=== PATIENT | male | born 1990 | race Hispanic/Latino ===

== ENCOUNTER 2020-10-08 21:42 | Observation (INO) | payer SELFPAY ==
--- NOTE | ~2020-10-08 | CT_ITS ---
EXAMINATION: CT abdomen pelvis w con INDICATION: Lower abdominal pain and vomiting TECHNIQUE: Computed tomographic images of the abdomen and pelvis were obtained after the administrati on of 100 cc of Omnipaque 350 intravenous contrast. The dose-length product (DLP) was 239.13 mGy-cm. Automated exposure control and iterative reconstruction technique were employed. COMPARISON: None available FINDINGS: The lung bases are clear. The heart size is normal. The liver, spleen, pancreas, gallbladde r, and adrenal glands are normal. The kidneys are unremarkable. No pathologically enlarged abdominal or pelvic lymph nodes are identified. There is mild enlargement of the appendix which measures up to 8 mm and contains appendicoliths. No significant periappendiceal fat stranding is identified. There a re no dilated loops of bowel. There is a small umbilical hernia containing fat. There is no free intr aperitoneal gas. There are bilateral L5 pars defects with grade 1 anterolisthesis of L5 on S1. IMPRESSION: 1. Mildly dilated appendix containing appendicoliths without significant periappendiceal fat strandin g. Findings could reflect early appendicitis. Recommend correlation for right lower quadrant tenderne ss. Reviewed, dictated and finalized at location A. IMPRESSION: 1. Mildly dilated appendix containing appendicoliths without significant periap pendiceal fat stranding. Findings could reflect early appendicitis. Recommend c orrelation for right lower quadrant tenderness.
[2020-10-08 21:47] VITALS: BP 105/64; PULSE 81; RESP 18; TEMP 36.4; O2SAT 100
--- NOTE | 2020-10-08 22:07 | ED.ABDPAIN ---
HPI - Abdominal Pain General Chief Complaint: Abdominal Pain <ANTHONY Tong - Last Filed: 10/09/20 00:43> Stated Complaint: ABD pain <ANTHONY Tong - Last Filed: 10/09/20 00:43> Time Seen by Provider: 10/08/20 21:58 <ANTHONY Tong - Last Filed: 10/09/20 00:43> Source: patient <Noelle M. ANTHONY Garcia - Last Filed: 10/09/20 00:43> Mode of arrival: ambulatory <ANTHONY Tong - Last Filed: 10/09/20 00:43> Limitations: no limitations <ANTHONY Tong - Last Filed: 10/09/20 00:43> History of Present Illness HPI narrative: Patient is a 40-year-old male who presents complaining of sudden onset of abdominal pain this afternoon. Patient reports generalized abdominal pain, guarding lower abdomen at this time. Patient reports vomiting x 2 this evening. 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 Patient denies diarrhea. He reports he is unable to urinate at this time. Denies exposure to Covid, patient is unvaccinated. He denies taking otc medication for pain prior to arrival. Patient denies significant medical history. <ANTHONY Tong - Last Filed: 10/09/20 00:43> MD elicited complaint: abdominal pain <ANTHONY Tong - Last Filed: 10/09/20 00:43> Related Data Home Medications: Home Medications Medication Instructions Recorded Confirmed No Home Medications 10/09/20 10/09/20 <ANTHONY Tong - Last Filed: 10/09/20 00:43> Allergies/Adverse Reactions: Allergies Allergy/AdvReac Type Severity Reaction Status Date / Time No Known Allergies Allergy Verified 10/08/20 21:53 <ANTHONY Tong - Last Filed: 10/09/20 00:43> Review of Systems Review of Systems: CONSTITUTIONAL: Denies fever, chills, or sweats. EYES: Denies visual changes, redness, or discharge. ENT: Denies rhinorrhea, congestion, sore throat, or otalgia. CARDIOVASCULAR: Denies chest pain, palpitations, or edema. RESPIRATORY: Denies cough or dyspnea. GASTROINTESTINAL: Reports abdominal pain and vomiting x2 GENITOURINARY: Denies dysuria or hematuria. SKIN: Denies rash or itching. MUSCULOSKELETAL: Denies back pain, joint pain, or myalgia. NEUROLOGIC: Denies headache, numbness, dizziness, or weakness. PSYCHIATRIC: Denies anxiety or depression. <ANTHONY Tong - Last Filed: 10/09/20 00:43> [facility] Past Medical History Medical History: Medical History Marijuana smoker Smoker <ANTHONY Tong - Last Filed: 10/09/20 00:43> Family History Family History: Family History Other No significant family history <ANTHONY Tong - Last Filed: 10/09/20 00:43> Social History Social History: Social History Smoking packs per day: 0.5 Smoking cigarettes per day: 10.0 Years smoked: 10 Smoking pack-years: 5.00 Smoking status: Current every day smoker Tobacco type: cigarettes Alcohol intake: current Alcohol use details: occasional Substance use: current Substance use type: marijuana Last use: 1 week ago Occupation/Education: occupation 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 Please see nursing chart for further information. There is no relevant family history pertinent to the presenting complaint. <ANTHONY Tong - Last Filed: 10/09/20 00:43> Exam Narrative: GENERAL: Well-appearing, well-nourished, and in no acute distress. HEAD: Normocephalic, atraumatic. EYES: EOMI. No redness or drainage. Conjunctiva ar
[2020-10-08] MEDS: ONDANSETRON INJ 4 MG/2 ML VIAL IV PUSH (22:16)
[2020-10-08] MEDS: SODIUM CHLORIDE 0.9% IV 1,000 ML 999 ML IV CONT (22:16)
[2020-10-08 22:18] LABS: Basophils Percent Auto 0.2 % (0.2-1.2); Eosinophils Percent Auto 0.2 % (0-4.4); Hematocrit 44.5 % (42.0-52.0); Immature Granulocyte Absolute 0.08 K/mm3 (0.00-0.031); Immature Granulocyte Percent A 0.5 % (0-0.5); Lymphocytes Absolute Auto 2.04 K/mm3 (0.9-3.2); Lymphocytes Percent Auto 13.1 % (18.3-44.2); Mean Corpuscular HGB Conc 33.7 g/dl (32-36); Mean Corpuscular Hemoglobin 27.5 pg (26-34); Mean Corpuscular Volume 81.7 fl (80-100); Mean Platelet Volume 9.2 fl (7.4-10.4); Monocytes Absolute Auto 0.7 K/mm3 (0.1-0.6); Monocytes Percent Auto 4.4 % (2.6-8.5); Neutrophils Absolute Auto 12.7 K/mm3 (1.3-6.7); Neutrophils Percent Auto 81.6 % (45.5-73.1); Platelet Count Result 271 k/mm3 (150-375); Red Blood Count 5.45 M/mm3 (4.6-6.20); Red Cell Distribution Width 12.4 % (11.5-14.5); White Blood Count 15.6 K/mm3 (4.5-10.0)
[2020-10-08 22:27] LABS: Alanine Aminotransferase 24 U/L (4-50); Albumin Level 4.8 g/dL (3.5-5.1); Alkaline Phosphatase 98 U/L (38-126); Anion Gap 13 mmol/L (8-16); Aspartate Amino Transferase 33 U/L (17-59); Bilirubin,Total 0.8 mg/dL (0.2-1.3); Blood Urea Nitrogen 16 mg/dL (9-20); Calcium 9.3 mg/dL (8.4-10.2); Carbon Dioxide 21 mmol/L (22-30); Chloride 104 mmol/L (98-107); Estimated CRCL calculation 98 ml/min; Estimated Glomerular Filt Rate > 60; Glucose 111 mg/dL (65-110); Lipase 73 U/L (23-300); Potassium 3.4 mmol/L (3.4-5.0); Sodium 138 mmol/L (137-145)
--- NOTE | 2020-10-08 22:48 | PC.NURSE ---
Pt states he cant urinate at this time. Will attempt again soon.
[2020-10-08 23:10] VITALS: BP 141/79; PULSE 86; RESP 25; O2SAT 100
[2020-10-08] MEDS: MORPHINE SULFATE (*CRX) 4 MG/ML INJ IV PUSH (23:14)
[2020-10-08 23:29] LABS: Add Urine Microscopic? YES; Appearance Urine Clear (Clear); Bilirubin Urine Negative (Negative); Blood Urine Negative (Negative); Color Urine Straw (Yellow); Glucose Urine UA Negative (Negative); Ketones Urine 1+ mg/dL (Negative); Leukocyte Esterase Ur Negative LEU/UL (Negative); Nitrate Urine Negative (Negative); Protein Urine Negative (Negative); RBC Urine 0-2 /hpf (0-2); Urobilinogen Urine Negative mg/dL (<2.0); WBC Urine 0-3 /hpf
[2020-10-08 23:39] LABS: Specific Grav Ur 1.035 (1.001-1.035)
[2020-10-09] VITALS (17 sets, daily range): BP systolic 112–147; BP diastolic 60–91; PULSE 53–88; RESP 12–22; TEMP 36.2–36.6; O2SAT 93–100; BMI 22.0
--- NOTE | 2020-10-09 00:55 | ADMGEN ---
This patient, Gil Dick Jr., was admitted to Medical Room 252-01. Patient/family oriented to hospital policies and general routines including ID bracelet, bed and alarms, visiting hours, pain management, procedures, bathroom and other care routines, personal items, smoking policy, room service/diet, and visiting hours. Information on how to activate the Rapid Response Team has been discussed. Patient/Family are encouraged to report perceived risks to care and to ask questions if they do not understand what they are told or what they should do.
[2020-10-09] MEDS: SODIUM CHLORIDE 0.9% IV 1,000 ML 125 ML IV CONT (01:13)
[2020-10-09] MEDS: MORPHINE SULFATE (*CRX) 4 MG/ML INJ IV PUSH ×4 (01:14→18:29)
[2020-10-09] MEDS: ONDANSETRON INJ 4 MG/2 ML VIAL IV PUSH ×2 (01:14→15:55)
--- NOTE | 2020-10-09 08:15 | PM.IMHP ---
H&P: HPI History of Present Illness Date/Time: 10/09/20 08:15 Chief Complaint: Lower abdominal pain Narrative: 30 yo man presented to ED overnight with RLQ abdominal pain. Pain started yesterday. Also having nausea and vomiting. No change in bowel habits. No fevers. Has never had pain like this before. He is otherwise healthy except for tobacco use and occasional marijuana. Review of Systems Review of Systems: All systems reviewed & are unremarkable except as noted in HPI and below Eyes: Eyes: Denies change in vision ENT: Denies hearing loss, Denies neck pain and Denies sore throat Cardiovascular: Cardiovascular: Denies chest pain and Denies dyspnea Respiratory: Respiratory: Denies cough, Denies dyspnea and Denies wheezing Gastrointestinal: Gastrointestinal: Reports as per HPI Genitourinary: Genitourinary: Denies hematuria and Denies dysuria Musculoskeletal: Musculoskeletal: Denies arthralgias, Denies joint swelling and Denies neck pain Allergic/Immunologic: Allergic/Immunologic: Denies wheezing PMFSH Past Medical History Medical History (Updated 10/08/20 @ 23:50 by ANTHONY Tong) No significant past medical history Surgical History Surgical History (Updated 10/08/20 @ 22:10 by ANTHONY Tong) No significant past surgical history Family History Family History Other No significant family history Social History Social History (Updated 10/09/20 @ 08:18 by Naldo Villareal DO) Smoking packs per day: 0.5 Smoking cigarettes per day: 10.0 Years smoked: 10 Smoking pack-years: 5.00 Smoking status: Current every day smoker Tobacco type: cigarettes Alcohol intake: current Alcohol use details: occasional Substance use: current Substance use type: marijuana Last use: 1 week ago Occupation/Education: occupation 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, 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 Gender identity (if verbalized by the patient): Male Spiritual care concerns: No Meds Home Medications and Allergies Home Medications Medication Instructions Recorded Confirmed Type No Home Medications 10/09/20 10/09/20 History Allergies Allergy/AdvReac Type Severity Reaction Status Date / Time No Known Allergies Allergy Verified 10/08/20 21:53 Vital Signs Vital Signs - 24 hr 10/08/20 21:47 10/08/20 23:10 10/09/20 00:15 Temperature 36.4 C Pulse Rate 81 86 74 Respiratory Rate 18 25 H 20 Blood Pressure 105/64 141/79 H 137/91 H Pulse Oximetry 100 100 100 10/09/20 02:18 10/09/20 05:50 Temperature 36.4 C 36.2 C L Pulse Rate 73 69 Respiratory Rate 22 H 16 Blood Pressure 147/79 H 136/67 Pulse Oximetry 100 98 Exam Const: General: alert; No acute distress Orientation/consciousness: patient oriented x3 Limitations: no limitations HENMT: Head: normocephalic and atraumatic Ears: hearing grossly normal bilaterally General nose exam: Normal external nose present and Normal nares present Mouth: Yes Normal oral and palatal mucosa present and Yes moist mucous membranes Eyes: General: appearance normal, both eyes and all related structures Conjunctivae: conjunctivae normal Sclera: sclerae normal Pupils: Equal, round and reactive pupils present EOM: EOMs intact bilaterally Neck: Neck: normal visual inspection, full ROM, no lymphadenopathy, supple and no JVD Lymphatic: no lymphadenopathy noted Chest: Chest palpation & inspection: normal inspection of the chest Resp: Effort & Inspection: normal respiratory effort and able to speak in complete sentences Auscultation: clear to auscultation bilaterally Percussion: percussion normal Cardio: Jugular venous distension: no JVD Rate: regular rate Rhythm: regular rhythm Heart sounds: S1 normal heart sound present and S2 normal heart sound present Peripheral pulses: Peripheral pulses 2+ throughout GI: Inspection: normal to insp
--- NOTE | 2020-10-09 09:45 | PC.NURSE ---
To OR via stretcher with OR staff. Consent signed and on chart.
--- NOTE | 2020-10-09 09:55 | WPDANESEPPF ---
Anes - Initial Pre Proc Eval Procedure: Operation Date: 10/09/20 11:00 Proposed Procedures p Laparoscopic Appendectomy, Possible Open - Naldo Villareal DO Date/Time: 10/09/20 09:55 Surgeon: Naldo Villareal DO Pre Op Diagnosis: Appendicitis Patient Data Age: 30 Gender: M Height: 1.75 m Weight: 67.8 kg Last Vital Signs Temp 36.2 C L 10/09/20 05:50 Pulse 69 10/09/20 05:50 Resp 16 10/09/20 05:50 BP 136/67 10/09/20 05:50 Pulse Ox 98 10/09/20 05:50 Allergies Allergy/AdvReac Type Severity Reaction Status Date / Time No Known Allergies Allergy Verified 10/08/20 21:53 Home Medications Medication Instructions Recorded Confirmed Type No Home Medications 10/09/20 10/09/20 History Laboratory Tests 10/08/20 10/08/20 10/08/20 22:10 22:10 23:11 WBC 15.6 K/mm3 H K/mm3 (4.5-10.0) RBC 5.45 M/mm3 M/mm3 (4.6-6.20) Hgb 15.0 g/dL g/dL (14.0-18.0) Hct 44.5 % % (42.0-52.0) MCV 81.7 fl fl (80-100) MCH 27.5 pg pg (26-34) MCHC 33.7 g/dl g/dl (32-36) RDW 12.4 % % (11.5-14.5) Plt Count 271 k/mm3 k/mm3 (150-375) MPV 9.2 fl fl (7.4-10.4) Immature Gran % (Auto) 0.5 % % (0-0.5) Neut % (Auto) 81.6 % H % (45.5-73.1) Lymph % (Auto) 13.1 % L % (18.3-44.2) [place] % (Auto) 4.4 % % (2.6-8.5) Eos % (Auto) 0.2 % % (0-4.4) Baso % (Auto) 0.2 % % (0.2-1.2) Lymph # (Auto) 2.04 K/mm3 K/mm3 (0.9-3.2) [place] # (Auto) 0.7 K/mm3 H K/mm3 (0.1-0.6) Eos # (Auto) 0.0 K/mm3 K/mm3 (0-0.3) Baso # (Auto) 0.0 K/mm3 K/mm3 (0.0-0.1) Abs Immat Gran (auto) 0.08 K/mm3 H K/mm3 (0.00-0.031) Absolute Neuts (auto) 12.7 K/mm3 H K/mm3 (1.3-6.7) Absolute Nucleated RBC 0.0 K/mm3 K/mm3 (0.0-0.012) Nucleated RBC % 0.0 % % (0.0-0.2) Sodium 138 mmol/L mmol/L (137-145) Potassium 3.4 mmol/L mmol/L (3.4-5.0) Chloride 104 mmol/L mmol/L (98-107) Carbon Dioxide 21 mmol/L L mmol/L (22-30) Anion Gap 13 mmol/L mmol/L (8-16) BUN 16 mg/dL mg/dL (9-20) Creatinine 0.80 mg/dL mg/dL (0.7-1.3) Estim Creat Clear Calc 98 ml/min ml/min Estimated GFR > 60 (59 - ) Glucose 111 mg/dL H mg/dL (65-110) Calcium 9.3 mg/dL mg/dL (8.4-10.2) Total Bilirubin 0.8 mg/dL mg/dL (0.2-1.3) AST 33 U/L U/L (17-59) ALT 24 U/L U/L (4-50) Alkaline Phosphatase 98 U/L U/L (38-126) Total Protein 8.0 g/dL g/dL (6.3-8.2) Albumin 4.8 g/dL g/dL (3.5-5.1) Lipase 73 U/L U/L (23-300) Urine Color Straw (Yellow) Urine Appearance Clear (Clear) Urine pH 9.0 (5.0-9.0) Ur Specific [place] 1.035 (1.001-1.035) Urine Protein Negative mg/dL mg/dL (Negative) Urine Glucose (UA) Negative mg/dL mg/dL (Negative) Urine Ketones 1+ mg/dL H mg/dL (Negative) Ur Blood (Man) Negative (Negative) Urine Nitrate Negative (Negative) Urine Bilirubin Negative (Negative) Urine Urobilinogen Negative mg/dL mg/dL (<2.0) Leukocyte Esterase Rfl Negative IRASEMA/UL IRASEMA/UL (Negative) Urine RBC 0-2 /hpf /hpf (0-2) Urine WBC 0-3 /hpf /hpf Patient hx anesthesia problems: none Family hx anesthesia problems: none PMFSH Past Medical History Medical History Marijuana smoker Smoker Family History Family History Other No significant family history Social History Social History Smoking packs per day: 0.5 Smoking cigarettes per day: 10.0 Years smoked: 10 S
[2020-10-09] MEDS: LACTATED RINGERS 1,000 ML 30 ML IV CONT ×2 (10:09→12:04)
--- NOTE | 2020-10-09 10:50 | WPDHPUPDATE1 ---
History and Physical Update Update Date/Time: 10/09/20 10:50 History and Physical has been reviewed, including an updated exam of the patient. There are NO changes in the patient's condition. Risks, benefits, and alternatives have been discussed and questions answered. Patient agrees to proceed with procedure.
[2020-10-09] MEDS: BUPIVACAINE/EPINEPHRINE 0.5% 30 ML VIAL INFILTRATE (11:35)
--- NOTE | 2020-10-09 12:02 | W.PM.PROC2 ---
Procedure Note - Detailed Date of Procedure 10/09/20 Pre-op Diagnosis Acute appendicitis Post-op Diagnosis same Procedure Performed Laparoscopic appendectomy Surgeon Naldo Villareal, DO Anesthesia general and local (0.5% bupivacaine with epinephrine) Indications This is a 30 yo man who presented to the ED overnight with RLQ abdominal pain that started yesterday. Pain progressed and developed nausea and vomiting. Denied fevers. CT showed evidence of acute appendicitis. Decision was made to proceed with laparoscopic appendectomy, possible open. Findings Laparoscopic appendectomy was performed. Appendix appeared dilated and inflamed but there was no evidence of perforation or abscess. Base of appendix appeared healthy and viable. No other abnormalities were noted. Appendix removed and sent for pathology. Description of Procedure Procedure as well as risks, benefits, and alternatives were explained to the patient. The patient agreed to proceed. Written consent was obtained and placed in chart prior to procedure. The patient was brought back to surgical suite. He was placed supine on operating table. Time-out was done to confirm the patient and procedure. The patient was then intubated by the Anesthesia Department. His abdomen was prepped and draped in sterile fashion using chlorhexidine prep. A 12 mm incision was made at the inferior portion of the umbilicus. Blunt dissection was carried out down to the linea alba. The linea alba was then incised using a 15 blade scalpel. Then bluntly entered into the peritoneal cavity. A 12 mm trocar was then inserted, and carbon dioxide insufflation was used to create a pneumoperitoneum. The camera was inserted and the abdomen was inspected. No immediate abnormalities were identified. The patient was then placed in slight Trendelenburg position and rotated to the left. A 5 mm incision was made in the suprapubic region in midline and a 5 mm trocar was inserted under direct visualization. A 5 mm incision was made in the left lower quadrant and a 5 mm trocar was inserted under direct visualization. The right lower quadrant was carefully inspected. The cecum was identified and then this was traced back to the appendix. The appendix was identified and grasped at the mesoappendix and lifted anteriorly. Careful blunt dissection was carried out at the base of the appendix through the mesoappendix using a [place] grasper. An Endo-MARION 45 mm blue load stapler was then advanced across the base of the appendix and clamped and fired. A white reload was then clamped across the mesoappendix and fired. This freed up our appendix completely. It was then placed in an EndoCatch bag and removed through the umbilical port. The staple lines were then inspected. Hemostasis appeared adequate and the staple lines appeared secure. The area was then irrigated with sterile saline. The pelvis was then carefully inspected and irrigated with sterile saline as well and the remainder of the abdomen was carefully inspected. The patient was then flattened out in bed. One final inspection was made around the abdominal cavity and no other abnormalities were seen. The ports were then removed under direct visualization. The camera was removed and the pneumoperitoneum was released. The fascia of the umbilical incision was reapproximated using an 0 Vicryl [id number] suture. 0.5% bupivacaine with epinephrine was infiltrated locally around each of the incisions. The skin of the incisions was then approximated using 4-0 Monocryl subcuticular suture and Exofin glue was applied on top. The patient was then awakened from anesthesia, extubated, and transferred to Recovery. Estimated Blood Loss 5 Pathology yes (Appendix) Complications No immediate complications Condition stable Disposition floor
--- NOTE | 2020-10-09 12:05 | PM.DS ---
DS: Admitting Diagnosis Admitting Diagnosis Acute appendicitis DS: Discharge Diagnosis Discharge Diagnosis (1) Acute appendicitis: Qualifiers: Acute appendicitis type: unspecified acute appendicitis type Qualified Code(s): K35.80 - Unspecified acute appendicitis Code(s): K35.80 - Unspecified acute appendicitis Status: Acute DS: Summary Hospital Course Reason for hospitalization: Acute appendicitis Hospital Course: 30 yo man presented to ED with RLQ pain. He was found to have evidence of acute appendicitis and was admitted to the hospital. Zosyn started in the ED. He then underwent laparoscopic appendectomy. Appendix was not perforated and no abscess was identified. He was returned to the surgical floor postop. Diet and activity advanced as tolerated. He was discharged once tolerating regular diet, vitals stable, pain controlled and ambulating in halls. Status at Discharge Functional status at discharge: independent ambulation Overall status at discharge: patient is progressing back to baseline Time Spent with Patient Time attestation: Total time spent providing and/or coordinating discharge services: Time spent: Less than 30 minutes Exam Narrative: unchanged from preop DS: Data Data Completed and Pending Pending studies at discharge: Pending at discharge 10/09/20 11:29 Surgical [PTH] Routine Labs on day of discharge: Labs from last 24 hours 10/08/20 10/08/20 10/08/20 23:11 22:10 22:10 WBC 15.6 H RBC 5.45 Hgb 15.0 Hct 44.5 MCV 81.7 MCH 27.5 MCHC 33.7 RDW 12.4 Plt Count 271 MPV 9.2 Immature Gran % (Auto) 0.5 Neut % (Auto) 81.6 H Lymph % (Auto) 13.1 L [place] % (Auto) 4.4 Eos % (Auto) 0.2 Baso % (Auto) 0.2 Lymph # (Auto) 2.04 [place] # (Auto) 0.7 H Eos # (Auto) 0.0 Baso # (Auto) 0.0 Abs Immat Gran (auto) 0.08 H Absolute Neuts (auto) 12.7 H Absolute Nucleated RBC 0.0 Nucleated RBC % 0.0 Sodium 138 Potassium 3.4 Chloride 104 Carbon Dioxide 21 L Anion Gap 13 BUN 16 Creatinine 0.80 Estim Creat Clear Calc 98 Estimated GFR > 60 Glucose 111 H Calcium 9.3 Total Bilirubin 0.8 AST 33 ALT 24 Alkaline Phosphatase 98 Total Protein 8.0 Albumin 4.8 Lipase 73 Urine Color Straw Urine Appearance Clear Urine pH 9.0 Ur Specific [place] 1.035 Urine Protein Negative Urine Glucose (UA) Negative Urine Ketones 1+ H Ur Blood (Man) Negative Urine Nitrate Negative Urine Bilirubin Negative Urine Urobilinogen Negative Leukocyte Esterase Rfl Negative Urine RBC 0-2 Urine WBC 0-3 Imaging Radiologist's impression: ITS Impressions Abdomen/Pelvis CT 10/08/20 22:59 IMPRESSION: 1. Mildly dilated appendix containing appendicoliths without significant periappendiceal fat stranding. Findings could reflect early appendicitis. Recommend correlation for right lower quadrant tenderness. Discharge Plan Discharge Attending physician on discharge: Naldo Zee Consulting providers: Mik Jain Discharging Clinician: Naldo Zee Anticipated Discharge Date/Time: 10/09/20 15:00 Patient Disposition: Home, Self-Care Activity: other - see discharge instructions Diet: other - see discharge instructions Wound Care Instructions: other - see discharge instructions Discharge Instructions: DISCHARGE INSTRUCTION SHEET FOR HERNIA, GALLBLADDER AND APPENDIX SURGERIES DR. ZEE PATIENT TO TAKE HOME 1. May shower in 24 hours, no soaking in bath x 2weeks. 2. Call office for: Wound increasingly painful or bleeding Vomiting Fever of greater than 101 degrees 3. If no bowel movement for three days, take 1 oz. (30 ml) Milk of Magnesia or MiraLax 17g 1 to 2 times daily. 4. No heavy lifting > 10-15 pounds x weeks for hernia repairs and 2 weeks for laparoscopic cholecystectomy or mayra
[2020-10-09] MEDS: fentaNYL CITRATE INJ (*CRX) 100 MCG/2 ML VIAL 25 MCG IV PUSH ×3 (12:41→12:54)
--- NOTE | 2020-10-09 13:15 | PC.NURSE ---
Received patient from OR via stretcher with OR staff. Patient in no distress. C/o incisional pain in abdomen. Denies nausea. Surgical sites x 3 [employer]UX[employer]IARIES with surgical glue intact.
[2020-10-09] MEDS: LACTATED RINGERS 1,000 ML 100 ML IV CONT (14:25)
[2020-10-09] MEDS: HYDROcodone/acetaminophen (*CRX) 7.5-325 MG TABLET 1 TAB PO ×2 (15:55→20:00)
--- NOTE | 2020-10-09 19:22 | PC.NURSE ---
Patient c/o incisional pain and stated [place] didn't help. Requested another dose of Morphine prior to supper. [place] like he was ready to eat regular food but vomited his supper. States he does not feel ready to go home. Patient also stated he has been walking back and forth to bathroom but does not feel ready to walk in hallways. States he prefers to discharge tomorrow morning after breakfast.
[2020-10-10 00:27] VITALS: BP 111/52; PULSE 78; RESP 16; TEMP 36.1; O2SAT 92
[2020-10-10 03:07] VITALS: BP 109/54; PULSE 72; RESP 18; TEMP 36.2; O2SAT 100
[2020-10-10] MEDS: HYDROcodone/acetaminophen (*CRX) 7.5-325 MG TABLET 1 TAB PO ×2 (06:04→10:08)
--- NOTE | 2020-10-10 08:41 | PC.NURSE ---
Patient lying in bed eating breakfast. Per night RN, patient ambulated in hallways last evening late. Patient continues to c/o incisional soreness and his abdomen hurting . Abdomen is soft and flat with active bowel sounds. 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 No redness noted. Patient states he is passing gas. Denies nausea. Tolerated a regular breakfast without difficulty. Patient is urinating in bathroom with no issues. Discussed splinting of abdomen when coughing and encouraged use of incentive spirometer. Also discussed the importance of walking frequently to alleviate gas pain and pressure. Reassured patient that he is doing well and discussed discharge with patient. Patient is agreeable to being discharged later this morning. Also encouraged patient to try Ibuprofen for pain. Patient declined. Patient states he will take his next available [place] at 1000 and have his father pick him up after that.
--- NOTE | 2020-10-10 09:06 | WPDANESPN ---
Anes - Prog Note Post-Op Date/Time: 10/10/20 09:06 Cardiovascular status: normal Respiratory status: normal Airway patency: baseline Mental status: baseline Post-Op hydration status: normal Vital Signs: Last Vital Signs Temp 36.2 C L 10/10/20 03:07 Pulse 72 10/10/20 03:07 Resp 18 10/10/20 03:07 BP 109/54 L 10/10/20 03:07 Pulse Ox 100 10/10/20 03:07 Pain Score (VAS): 4 I/O: Intake & Output 10/09/20 10/10/20 10/10/20 23:59 07:59 15:59 Intake Total 1270 700 Balance 1270 700 Laboratory Tests 10/08/20 22:10 10/08/20 22:10 Post-procedural complaints: none Patient Feedback: Patient satisfied with anesthetic care.
== END 2020-10-10 10:30 | disposition home or self-care (01) ==
LOC: ANHED 23:50 → ANH2MED 10-09 00:25
PROVIDERS: Admitting Provider Surgery; Emergency Provider Nurse Practitioner; Visit Provider Surgery
PROC: 0DTJ4ZZ Resection of Appendix, Percutaneous Endoscopic Approach (ICD-10-PCS; CPT 44970; principal; 2020-10-09 11:00)
DX: K35.30 Acute appendicitis with localized peritonitis, without perforation or gangrene (principal); F17.210 Nicotine dependence, cigarettes, uncomplicated
CPT/HCPCS: 44970; 36415; 74177; 80053; 81001; 83690; 85025; 88304; 96361; 96365; 96375; 96376; 99285; A9270; G0378; G0379; J0131; J0330; J1100; J1170; J2250; J2270; J2405; J2543; J2704; J2710; J3010; J7030; J7120; Q9967

== ENCOUNTER 2021-05-24 01:37 | Emergency (ER) | payer SELFPAY ==
[2021-05-24 01:41] VITALS: BP 140/103; PULSE 70; RESP 18; TEMP 37.3; O2SAT 100
--- NOTE | 2021-05-24 02:45 | WPDEDEXPGENP ---
HPI - General Ped General Chief complaint: Headache <Saul Garcia APRN - Last Filed: 05/24/21 02:52> Stated complaint: headache <Saul Garcia APRN - Last Filed: 05/24/21 02:52> Time Seen by Provider: 05/24/21 02:40 <Saul Garcia APRN - Last Filed: 05/24/21 02:52> History of Present Illness HPI narrative: 31-year-old male presents to the emergency room via EMS for pain in his neck for 3 days. Patient states that he has noticed some swelling to the left side of his neck 3 days ago, has prevented him from swallowing. Patient admits decreased salivation on the left side. Denies fever reports multiple wisdom teeth that need to be pulled. <Saul Garcia APRN - Last Filed: 05/24/21 02:52> Related Data Allergies/adverse reactions: Allergies Allergy/AdvReac Type Severity Reaction Status Date / Time No Known Allergies Allergy Verified 10/23/20 08:57 <Saul Garcia APRN - Last Filed: 05/24/21 02:52> Pediatric Review of Systems Review of Systems: CONSTITUTIONAL: Denies fever, chills, or sweats. EYES: Denies visual changes, redness, or discharge. ENT: Denies rhinorrhea, congestion, sore throat, or otalgia. CARDIOVASCULAR: Denies chest pain, palpitations, or edema. RESPIRATORY: Denies cough or dyspnea. GASTROINTESTINAL: Denies abdominal pain, nausea, vomiting, or diarrhea. GENITOURINARY: Denies dysuria or hematuria. SKIN: Denies rash or itching. MUSCULOSKELETAL: Denies back pain, joint pain, or myalgia. NEUROLOGIC: Denies headache, numbness, dizziness, or weakness. PSYCHIATRIC: Denies anxiety or depression. <Saul Garcia APRN - Last Filed: 05/24/21 02:52> [facility] Past Medical History Medical History: Medical History Marijuana smoker Smoker <Saul Garcia APRN - Last Filed: 05/24/21 02:52> Surgical History Surgical History: Surgical History History of laparoscopic appendectomy 10/08/20 <Saul Garcia APRN - Last Filed: 05/24/21 02:52> Family History Family History: Family History Other No significant family history <Saul Garcia APRN - Last Filed: 05/24/21 02:52> Social History Social History: Social History Smoking packs per day: 0.5 Smoking cigarettes per day: 10.0 Years smoked: 10 Smoking pack-years: 5.00 Smoking status: Current every day smoker Tobacco type: cigarettes Alcohol intake: current Alcohol use details: occasional Substance use: current Substance use type: marijuana Last use: 1 week ago 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 HEAD: Normocephalic, atraumatic. EYES: PERRLA and EOMI. ENT: Nares clear, no rhinorrhea or epistaxis. Mucous membranes moist. Oropharynx without tonsillar hypertrophy exudate or other lesions. Bilateral TMs pearly houser nonbulging. Painful, mobile, anterior cervical lymphadenopathy NECK: Supple. No adenopathy or masses. No carotid bruits or JVD CHEST: Clear to auscultation. No respiratory distress. No wheezes rales or rhonchi HEART: Regular rate and rhythm. No murmur heard. Normal peripheral pulses. ABDOMEN: Soft, nontender, nondistended, normal active bowel sounds. EXTREMITIES: Normal range of motion. No edema. SKIN: Warm, dry, no rash. NEURO: No focal deficits. Alert and oriented x3. PSYCH: Normal mood and affect. <Saul Garcia APRN - Last Filed: 05/24/21 02:52> Course Vital Signs Vital signs: Vital Signs Temperature 37.3 C 05/24/21 01:41 Pulse Rate 70 05/24/21 01:41 Respiratory R
[2021-05-24 02:59] LABS: Basophils Percent Auto 0.2 % (0.2-1.2); Eosinophils Absolute Auto 0.2 K/mm3 (0-0.3); Eosinophils Percent Auto 1.9 % (0-4.4); Immature Granulocyte Absolute 0.03 K/mm3 (0.00-0.031); Immature Granulocyte Percent A 0.3 % (0-0.5); Lymphocytes Absolute Auto 3.48 K/mm3 (0.9-3.2); Lymphocytes Percent Auto 29.9 % (18.3-44.2); Mean Corpuscular HGB Conc 34.1 g/dl (32-36); Mean Corpuscular Hemoglobin 28.2 pg (26-34); Mean Corpuscular Volume 82.9 fl (80-100); Mean Platelet Volume 9.2 fl (7.4-10.4); Monocytes Absolute Auto 0.6 K/mm3 (0.1-0.6); Monocytes Percent Auto 5.3 % (2.6-8.5); Neutrophils Absolute Auto 7.3 K/mm3 (1.3-6.7); Neutrophils Percent Auto 62.4 % (45.5-73.1); Platelet Count Result 303 k/mm3 (150-375); Red Blood Count 5.31 M/mm3 (4.6-6.20); White Blood Count 11.7 K/mm3 (4.5-10.0)
[2021-05-24 03:00] VITALS: BP 127/78; PULSE 78; RESP 18; O2SAT 98
[2021-05-24] MEDS: SODIUM CHLORIDE 0.9% IV 1,000 ML 999 ML IV CONT (03:01)
[2021-05-24] MEDS: KETOROLAC 30 MG/ML VIAL (*BKC) IV PUSH (03:02)
[2021-05-24 03:21] LABS: Monoscreen Negative (Negative); Negative Monotest Control Negative (Negative); Positive Monotest Control Positive (Positive)
[2021-05-24 04:38] VITALS: BP 121/75; PULSE 68; RESP 16; O2SAT 99
== END 2021-05-24 04:42 | disposition home or self-care (01) ==
PROVIDERS: Nurse Practitioner Family; Emergency Provider Emergency Medicine
DX: R59.9 Enlarged lymph nodes, unspecified (principal); F17.210 Nicotine dependence, cigarettes, uncomplicated
CPT/HCPCS: 36415; 85025; 86308; 87081; 87880; 96361; 96374; 96375; 99284; J1100; J1885; J7030

== ENCOUNTER 2021-06-28 03:15 | Emergency (ER) | payer SELFPAY ==
[2021-06-28 03:18] VITALS: BP 153/111; PULSE 68; RESP 18; TEMP 36.6; O2SAT 100
--- NOTE | 2021-06-28 03:35 | PC.NURSE ---
Pt noted to be moaning loudly, states c'mon MAN! and rocking back and forth. Pt throws water bottle and exits the waiting room. RAMO Barba out to call pt back to treatment room.
== END 2021-06-28 04:20 | disposition left against medical advice (07) ==
LOC: ANHED 04:09
DX: K08.89 Other specified disorders of teeth and supporting structures (principal)
CPT/HCPCS: 99199

== ENCOUNTER 2024-02-19 18:50 | Emergency (ER) | payer SELFPAY ==
--- NOTE | ~2024-02-19 | CT_ITS ---
EXAMINATION: CT soft tissue neck w con DATE: 02/19/2024 22:40 INDICATION: TECHNIQUE: Computed tomography (CT) of the neck was performed with 75 mL Omnipaque-350 intravenous co ntrast. The dose-length product was 479.41 mGy-cm. COMPARISON: None FINDINGS: 3.7 x 2.8 x 4.3 cm multiloculated appearing cystic left neck mass at the level of the carotid bifurca tion, thin-walled, with associated focal soft tissue enhancement calcification. Multiple additional s maller 1-2 cm cystic lesions are present in the left neck, inferior to this mass. A similar cystic 1. 7 cm lesion is noted in the right neck between the right common carotid and right jugular vein. Enlar ged high anterior chain right-sided lymph nodes with multiple additional subcentimeter nodes. 9 mm hy podensity in the right thyroid gland with associated calcification. The submandibular glands are mi ldly enlarged. The parotid glands are symmetric. Cystic-appearing pretracheal lymph node in the supe rior mediastinum. Right hilar lymphadenopathy. The airway is unremarkable. Parapharyngeal and pre- glottic fat planes are preserved. Normal enhancing neck vessels. The orbits are unremarkable. Mu cosal thickening in all sinuses. Aerated secretions with an air-fluid level in the left maxillary sin us. The mastoid air cells are clear. Visualized bones are normal. Severe dental caries and periodonta l disease. IMPRESSION: Multiple cystic neck masses measuring up to 4.3 cm in the right neck. Consider metastatic disease, mendoza ch as thyroid. 9 mm partially calcified right thyroid lesion, which would not normally trigger further evaluation in a patient of this age and at the size, however given the above findings consider nonemergent but anila handy thyroid ultrasound. Additional considerations of multiple cystic neck masses (that are considered less likely due to the lack of significant wall thickening or surrounding fat stranding) included tuberculosis infection or suppurative infection from other organisms. Acute left maxillary sinusitis. Severe dental caries and periodontal disease. Left hilar lymphadenopathy. Reviewed, dictated and finalized at location K. BOSS IMPRESSION: Multiple cystic neck masses measuring up to 4.3 cm in the right neck. Consider metastatic disease, such as thyroid. 9 mm partially calcified right thyroid lesion, which would not normally trigger further evaluation in a patient of this age and at the size, however given the above findings consider nonemergent but timely thyroid ultrasound. Additional considerations of multiple cystic neck masses (that are considered l ess likely due to the lack of significant wall thickening or surrounding fat st randing) included tuberculosis infection or suppurative infection from other or ganisms. Acute left maxillary sinusitis. Severe dental caries and periodontal disease. Left hilar lymphadenopathy.
[2024-02-19 18:53] VITALS: BP 133/83; PULSE 100; RESP 18; TEMP 36.3; O2SAT 100
--- NOTE | 2024-02-19 21:10 | ED.SKABFB ---
HPI - Skin/Abscess/Foreign Bdy General Chief complaint: Skin/Abscess/Foreign Body Stated complaint: lump in neck Time Seen by Provider: 02/19/24 20:56 Source: patient Mode of arrival: ambulatory Limitations: no limitations and language barrier (Indian as second language but fluent in Indian) History of Present Illness HPI narrative: Patient presents with a lump on his neck that he first noticed 3 months ago and has progressively been getting bigger and more painful over the past 3 days. During this acute time he has had a sore throat and a cough since Monday. He is having some difficulty swallowing as a result. No difficulty breathing. Rates pain 8/10 in severity. No fevers or chills. He does have a headache with some photophobia. Denies dental pain. Related Data Allergies Allergy/AdvReac Type Severity Reaction Status Date / Time No Known Allergies Allergy Verified 06/28/21 03:23 [facility] Past Medical History Medical History Marijuana smoker Smoker Surgical History Surgical History History of laparoscopic appendectomy 10/08/20 Family History Family History Other No significant family history Social History Social History Smoking packs per day: 0.5 Smoking cigarettes per day: 10.0 Years smoked: 10 Smoking pack-years: 5.00 Smoking status: Current every day smoker Tobacco type: cigarettes Alcohol intake: current Alcohol use details: occasional Substance use: current Substance use type: marijuana Last use: 1 week ago Occupation/Education: occupation 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 HEAD: Normocephalic, atraumatic. EYES: Non injected, non icteric ENT: Nares clear, no rhinorrhea or epistaxis. Cervical lymphadenopathy. Posterior oropharynx erythematous with tonsillar hypertrophy. Large left sided neck mass without overlying erythema. Slightly mobile. Tolerating secretions. No submandibular swelling. Moist mucous membranes. NECK: Supple. CHEST: Speaking in full sentences. No respiratory distress. HEART: Regular rate and rhythm. . ABDOMEN: Soft, nondistended. EXTREMITIES: Normal range of motion. No lower extremity edema. SKIN: Warm, dry, no rash. NEURO: No focal deficits. Alert and oriented x3. Tongue protrudes midline. PSYCH: Normal mood and affect. Course Vital Signs Vital signs: Vital Signs Temperature 97.3 F L 02/19/24 18:53 Pulse Rate 100 02/19/24 18:53 Respiratory Rate 18 02/19/24 18:53 Blood Pressure 133/83 02/19/24 18:53 Pulse Oximetry 100 02/19/24 18:53 Oxygen Delivery Room Air 02/19/24 18:53 Temperature 97.3 F L 02/19/24 18:53 Pulse Rate 93 02/20/24 00:21 Respiratory Rate 17 02/20/24 00:21 Blood Pressure 128/79 02/20/24 00:21 Pulse Oximetry 99 02/20/24 00:21 Oxygen Delivery Room Air 02/19/24 18:53 MDM - Skin/Abscess/Foreign Bdy MDM Narrative Medical decision making narrative: Patient presents with a left sided neck mass that he states he first noticed 3 months ago but over the past 3 days has had a sore throat as well as a headache and this mass has increased in size. Associated with difficulty swallowing. In the emergency department they are afebrile with vital signs within normal limits. Centor Score 2 points for tonsillar swelling and tender cervical lymph nodes thus will proceed with rapid strep testing which is negative. Point of care ultrasound performed which does demonstrate what appears to be a cyst as it is well circumscribed with many finely brightly echogenic foci inside. However, given location and the fact that it appears to have been an infectious/inflammatory response, will obtain CT imaging. This demonstrates concern for cyst with other features concerning for thyroid issues. Informed patient about this and advised follow up with primary care physician. Also has periodontal disease and will be given list of resources. Given ED return precautions. Stable for discharge. Differential Diagnosis Differential diagnosis: Likely abscess of skin or subcutaneous tissue and other (lymphadenopathy; cyst; acute viral syndrome; strep pharyngitis) Lab Data Attestation: I reviewed the patient's lab results. Lab results narrative: Leukocytosis Normal renal function. Viral swab and strep negative. 02/19/24 22:06 02/19/24 22:06 Labs: Lab Results 02/19/24 Range/Units 22:06 WBC 13.7 H (4.5-10.0) K/mm3 RBC 5.25 (4.6-6.20) M/mm3 Hgb 14.8 (14.0-18.0) g/dL Hct 44.2 (42.0-52.0) % MCV 84.2 (80-100) fl MCH 28.2 (26-34) pg MCHC 33.5 (32-36) g/dl RDW 12.4 (11.5-14.5) % Plt Count 245 (150-375) k/mm3 MPV 9.3 (7.4-10.4) fl Immature Gran % (Auto) 0.4 (0-0.5) % Neut % (Auto) 78.5 H (45.5-73.1) % Lymph % (Auto) 13.0 L (18.3-44.2) % [place] % (Auto) 6.8 (2.6-8.5) % Eos % (Auto) 1.2 (0-4.4) % Baso % (Auto) 0.1 L (0.2-1.2) % Lymph # (Auto) 1.79 (0.9-3.2) K/mm3 [place] # (Auto) 0.9 H (0.1-0.6) K/mm3 Eos # (Auto) 0.2 (0-0.3) K/mm3 Baso # (Auto) 0.0 (0.0-0.1) K/mm3 Abs Immat Gran (auto) 0.05 H (0.00-0.031) K/mm3 Absolute Neuts (auto) 10.8 H (1.3-6.7) K/mm3 Absolute Nucleated RBC 0.000 (0.0-0.012) K/mm3 Nucleated RBC % 0.0 (0.0-0.2) % Sodium 138 (137-145) mmol/L Potassium 3.6 (3.4-5.0) mmol/L Chloride 107 (98-107) mmol/L Carbon Dioxide 26 (22-30) mmol/L Anion Gap 5 (4-12) mmol/L BUN 10 D (9-20) mg/dL Creatinine 0.80 (0.7-1.3) mg/dL Estim Creat Clear Calc 101 ml/min Estimated GFR > 60 (59 - ) Glucose 97 (65-110) mg/dL Calcium 9.1 (8.4-10.2) mg/dL Influenza A (RT-PCR) Negative (Negative) Influenza B (RT-PCR) Negative (Negative) RSV (RT-PCR) Negative (Negative) SARS-CoV-2 RNA (RT-PCR) Negative (Negative) Group A Strep (PCR) Not detected (Negative) Imaging Data Radiologist's impression: Impressions Soft Tissue Neck CT 02/19/24 22:41 IMPRESSION: Multiple cystic neck masses measuring up to 4.3 cm in the right neck. Consider metastatic disease, such as thyroid. 9 mm partially calcified right thyroid lesion, which would not normally trigger further evaluation in a patient of this age and at the size, however given the above findings consider nonemergent but timely thyroid ultrasound. Additional considerations of multiple cystic neck masses (that are considered less likely due to the lack of significant wall thickening or surrounding fat stranding) included tuberculosis infection or suppurative infection from other organisms. Acute left maxillary sinusitis. Severe dental caries and periodontal disease. Left hilar lymphadenopathy. Discharge Plan Discharge Clinical Impression: Mass of left side of neck, Leukocytosis, Thyroid lesion, Left maxillary sinusitis, Dental caries, Periodontal disease, Hilar adenopathy Patient Disposition: Home, Self-Care Condition: Stable Instructions: Antibiotic Form, Thyroid Nodules (ED), Mouth Care (ED), Cyst (ED), Periodontal Disease (DC) Additional Instructions: You have multiple cystic neck masses measuring up to 4.3 cm in the right neck and a 9 mm partially calcified right thyroid lesion, which would not normally trigger further evaluation in a patient of this age and at the size, however given the above findings consider nonemergent but timely thyroid ultrasound. Differential includes metastatic thyroid disease. Additional considerations of multiple cystic neck masses (that are considered less likely due to the lack of significant wall thickening or surrounding fat stranding) included tuberculosis infection or suppurative infection from other organisms. Since you do not have a primary care physician, the name of one is provided below who you can see and they can order this study to be performed and follow up with it. Alternatively, there is a provider that speaks [place] if you prefer though I do not know if they are accepting patients. Her name is Shahla Majoras ([phone]). You also have significant cavities and periodontal disease and should see a dentist. You will be given a list of resources. Return to the emergency department with any new or worsening symptoms such as shortness of breath/difficulty breathing, difficulty swallowing/drooling, fever >100.4F, etc. Acetaminophen/Tylenol (maximum 4000 mg per day) is safe to take with NSAIDs (ibuprofen/Motrin) for pain relief. Patient Language: [place] Prescriptions: New ibuprofen 600 mg tablet 600 mg PO TID PRN (Reason: pain) Qty: 30 0RF acetaminophen 500 mg capsule 1,000 mg PO Q6H PRN (Reason: pain) Qty: 30 0RF No Action amoxicillin-pot clavulanate 875-125 mg tablet 1 tablet PO Q12H Qty: 20 0RF prednisone 20 mg tablet 40 mg PO DAILY 5 Days Qty: 10 0RF ondansetron 4 mg tablet,disintegrating 4 mg PO Q8H PRN (Reason: nausea and vomiting) Qty: 10 0RF Follow-up/Referrals: PHYSICIAN,MAXILLOFACIAL SURGEON [Primary Care Provider] - Mik Jain MD [Physician] - (Family practice) Stand Alone Forms: Work/School Release IP Time of Disposition: 23:55
[2024-02-19] MEDS: dexAMETHasone 2 MG TABLET 10 MG PO (22:10)
[2024-02-19 22:13] LABS: Basophils Percent Auto 0.1 % (0.2-1.2); Eosinophils Absolute Auto 0.2 K/mm3 (0-0.3); Eosinophils Percent Auto 1.2 % (0-4.4); Hematocrit 44.2 % (42.0-52.0); Hemoglobin 14.8 g/dL (14.0-18.0); Immature Granulocyte Absolute 0.05 K/mm3 (0.00-0.031); Immature Granulocyte Percent A 0.4 % (0-0.5); Lymphocytes Absolute Auto 1.79 K/mm3 (0.9-3.2); Mean Corpuscular HGB Conc 33.5 g/dl (32-36); Mean Corpuscular Hemoglobin 28.2 pg (26-34); Mean Corpuscular Volume 84.2 fl (80-100); Mean Platelet Volume 9.3 fl (7.4-10.4); Monocytes Absolute Auto 0.9 K/mm3 (0.1-0.6); Monocytes Percent Auto 6.8 % (2.6-8.5); Neutrophils Absolute Auto 10.8 K/mm3 (1.3-6.7); Neutrophils Percent Auto 78.5 % (45.5-73.1); Platelet Count Result 245 k/mm3 (150-375); Red Blood Count 5.25 M/mm3 (4.6-6.20); Red Cell Distribution Width 12.4 % (11.5-14.5); White Blood Count 13.7 K/mm3 (4.5-10.0)
[2024-02-19 22:24] LABS: Anion Gap 5 mmol/L (4-12); Blood Urea Nitrogen 10 mg/dL (9-20); Calcium 9.1 mg/dL (8.4-10.2); Carbon Dioxide 26 mmol/L (22-30); Chloride 107 mmol/L (98-107); Estimated CRCL calculation 101 ml/min; Estimated Glomerular Filt Rate > 60; Glucose 97 mg/dL (65-110); Potassium 3.6 mmol/L (3.4-5.0); Sodium 138 mmol/L (137-145)
[2024-02-19] MEDS: MORPHINE SULFATE (*CRX) 4 MG/ML INJ IV PUSH (22:31)
[2024-02-19 22:39] LABS: Strep Group A RT-PCR NOT DETECTED (Negative)
[2024-02-19 22:50] LABS: Influenza A QL RT-PCR Negative (Negative); Influenza B QL RT-PCR Negative (Negative); RSV RNA, RT-PCR Negative (Negative); SARS-CoV-2 RNA PCR Negative (Negative)
[2024-02-20] MEDS: ACETAMINOPHEN 500 MG TABLET 1000 MG PO (00:16)
[2024-02-20] MEDS: KETOROLAC 15 MG/ML VIAL (*BKC) IV PUSH (00:16)
[2024-02-20 00:20] VITALS: BP 128/79; PULSE 93; RESP 17; O2SAT 99
[2024-02-20 00:21] VITALS: BP 128/79; PULSE 93; RESP 17; O2SAT 99
== END 2024-02-20 00:24 | disposition home or self-care (01) ==
PROVIDERS: Emergency Provider Student in an Organized Health Care Education/Training Program
DX: R22.1 Localized swelling, mass and lump, neck (principal); J01.00 Acute maxillary sinusitis, unspecified; E07.89 Other specified disorders of thyroid; K02.9 Dental caries, unspecified; K05.6 Periodontal disease, unspecified; R59.9 Enlarged lymph nodes, unspecified; D72.829 Elevated white blood cell count, unspecified; F17.210 Nicotine dependence, cigarettes, uncomplicated
CPT/HCPCS: 36415; 70491; 80048; 85025; 87637; 87651; 96374; 99284; A9270; J1885; J2270; J8540; Q9967